=== PATIENT | female | born 1980 | race Caucasian/White ===

== ENCOUNTER 2019-05-12 10:34 | Day surgery (SDC) | payer BC ==
[~2019-05-12] VITALS: Ht 160 cm; Wt 98.8 kg
[~2019-05-12 10:34] MED LIST: CYCL-259 PO; FENT1PAT76 TP; GABA300C10 PO; METH20CP PO; METH20TA PO; MONT10TA6 PO; VENL150C PO
[2019-05-12] MEDS ORDERED: BUPIVACAINE/PF 0.5% ONE ×2 (10:36→12:57)
[2019-05-12] MEDS ORDERED: FENTANYL PF 100 MCG/2ML ONE ×2 (10:36→14:22)
[2019-05-12 11:12] VITALS: BP 139/95
[2019-05-12] MEDS ORDERED: GABAPENTIN 300 MG CAPSULE PO ONE (11:30)
[2019-05-12] MEDS ORDERED: ACETAMINOPHEN 500 MG TABLET PO ONE (11:30)
[2019-05-12] MEDS ORDERED: SCOPOLAMINE PATCH, 1.5MG PATCH.TD72 TD ONE (11:30)
[2019-05-12] MEDS ORDERED: LACTATED RINGERS 1,000 ML IV SCH (11:43)
[2019-05-12] MEDS ORDERED: LIDOCAINE 1%, 20ML ONE (12:57)
[2019-05-12] MEDS ORDERED: MIDAZOLAM 1 MG/ML, 2ML ONE (13:07)
[2019-05-12] MEDS ORDERED: SUCCINYLCHOLINE 20 MG/ML, 10ML ONE (13:15)
[2019-05-12] MEDS ORDERED: ONDANSETRON 2MG/ML, 2ML ONE (13:25)
[2019-05-12] MEDS ORDERED: KETOROLAC 30 MG/1 ML ONE (13:25)
[2019-05-12] MEDS ORDERED: ONDANSETRON 2MG/ML, 2ML IV PRN (13:30)
[2019-05-12] MEDS ORDERED: hydrALAzine 20 MG/ML, 1ML IV PRN (13:30)
[2019-05-12] MEDS ORDERED: LABETALOL 5MG/ML, 20ML IV PRN (13:30)
[2019-05-12] MEDS ORDERED: MEPERIDINE/PF 25MG/ML,1ML IVPush PRN (13:30)
[2019-05-12] MEDS ORDERED: METOCLOPRAMIDE 5 MG/ML, 2ML IV PRN (13:30)
[2019-05-12] MEDS ORDERED: EPHEDRINE 50 MG/ML, 1ML IVPush PRN (13:30)
[2019-05-12] MEDS ORDERED: PROPOFOL 10 MG/ML, 20ML ONE (13:35)
[2019-05-12] MEDS ORDERED: LIDOCAINE-MPF 2% ,5ML ONE (13:39)
[2019-05-12] MEDS ORDERED: DEXAMETHASONE 4 MG/ML, 1ML ONE ×2 (13:39)
[2019-05-12] MEDS ORDERED: CEFAZOLIN 1,000 MG ONE ×2 (13:41)
[2019-05-12] MEDS ORDERED: SODIUM CHLORIDE 0.9% PF 10ML ONE (13:41)
[2019-05-12] MEDS ORDERED: OXYcodone 5 MG/5 ML ORAL.SOL UDC ONE (14:18)
[2019-05-12] MEDS: OXYcodone 5 MG/5 ML ORAL.SOL UDC PO PRN ×2 (14:19→15:59)
[2019-05-12] MEDS: FENTANYL PF 100 MCG/2ML IV PRN ×2 (14:24→14:30)
[2019-05-12] MEDS ORDERED: HYDROmorphone 1 MG/ML, 1ML VIAL ONE (14:31)
[2019-05-12] MEDS: HYDROmorphone 2 MG/ML, 1ML IVPush PRN ×2 (14:33→14:48)
== END 2019-05-12 16:30 | disposition home or self-care (01) ==
LOC: OUT 10:34
PROVIDERS: ATTEND Orthopaedic Surgery
DX: S92.352K Displaced fracture of fifth metatarsal bone, left foot, subsequent encounter for fracture with nonunion (principal); J45.909 Unspecified asthma, uncomplicated; Z72.89 Other problems related to lifestyle; Z79.891 Long term (current) use of opiate analgesic; Z79.1 Long term (current) use of non-steroidal anti-inflammatories (NSAID); Z79.899 Other long term (current) drug therapy; X58.XXXD Exposure to other specified factors, subsequent encounter
CPT/HCPCS: 28322; C1713; J0330; J0690; J1100; J1170; J1885; J2250; J2405; J2704; J3010; J7120